=== PATIENT | female | born 1975 | race Caucasian/White ===

== ENCOUNTER → 2018-10-05 | Outpatient (CLI) | payer BC ==
[2012-08-24 01:48] VITALS: BP 120/72
== END ==
LOC: MAMMO 14:30
DX: Z12.31 Encounter for screening mammogram for malignant neoplasm of breast (principal)

== ENCOUNTER → 2018-10-13 | Outpatient (CLI) | payer BC ==
[2012-08-24 01:48] VITALS: BP 120/72
== END ==
LOC: MAMMO 08:17
DX: R92.8 Other abnormal and inconclusive findings on diagnostic imaging of breast (principal)

== ENCOUNTER → 2019-04-10 | Outpatient (CLI) | payer BC ==
[2012-08-24 01:48] VITALS: BP 120/72
== END ==
LOC: MAMMO 06:56
DX: N60.02 Solitary cyst of left breast (principal)

== ENCOUNTER → 2021-12-24 | Outpatient (CLI) | payer BC | LOC: MAMMO 15:09 | DX: Z12.31 Encounter for screening mammogram for malignant neoplasm of breast (principal) ==

== ENCOUNTER → 2021-12-29 | Outpatient (CLI) | payer BC | LOC: MAMMO 07:00 | DX: R92.0 Mammographic microcalcification found on diagnostic imaging of breast (principal) ==

== ENCOUNTER → 2022-07-23 | Outpatient (CLI) | payer BC | LOC: MAMMO 12:15 | DX: R92.0 Mammographic microcalcification found on diagnostic imaging of breast (principal) ==

== ENCOUNTER → 2022-12-16 | Outpatient (CLI) | payer BC | LOC: MAMMO 15:12 | DX: Z12.31 Encounter for screening mammogram for malignant neoplasm of breast (principal) ==

== ENCOUNTER → 2024-04-24 | Outpatient (CLI) | payer BC | LOC: MAMMO 07:40 | DX: Z12.31 Encounter for screening mammogram for malignant neoplasm of breast (principal); Z01.419 Encounter for gynecological examination (general) (routine) without abnormal findings ==